=== PATIENT | female | born 1965 | race Caucasian/White ===

== ENCOUNTER → 2020-10-30 | Outpatient (CLI) | payer OTHER ==
[~2020-10-30] MED LIST: ALDACTONE25 MG PO; CARAFATE 1 GM TA1 GM PO; CARAFATE SU1 G/10 ML PO; CLARITIN10 M2 PO; DILTIAZEM 24HR180 M1 PO; FLEXERIL 10 MG10 MG PO; FOLIC ACID 1 MG1 MG PO; GLUCOTROL 10 MG10 MG PO; JANUMET XR 1001 EACH PO; JANUVIA100 MG PO; LIPITOR TAB 1010 MG PO; METFORMIN HCL1000 M1 PO; MIRALAX17 GM PO; OMNICEF 300 MG300 MG PO; PROTONIX 40 MG40 M1 PO; PYRIDIUM200 MG PO; ZESTRIL 40 MG T40 MG PO; ZOFRAN4 MG PO
== END ==
LOC: HEART 5 09-29 08:30
DX: R07.9 Chest pain, unspecified (principal); I08.1 Rheumatic disorders of both mitral and tricuspid valves; R93.1 Abnormal findings on diagnostic imaging of heart and coronary circulation
CPT/HCPCS: 78452; 93306; A9502; J2785

== ENCOUNTER → 2020-11-25 | Outpatient (CLI) | payer OTHER | LOC: KOH-I 11:13 | DX: Z01.818 Encounter for other preprocedural examination (principal) | CPT/HCPCS: 71046 ==

== ENCOUNTER → 2021-04-15 | Outpatient (CLI) | payer OTHER ==
[~2021-04-15] MED LIST changes: +DEXCOM G61 EAC1 MC; +FARXIGA10 MG PO; +METOPROLOL TART25 MG PO; +OMEGA-31000 MG PO; +PROTONIX40 MG PO; +ROPINIROLE HCL0.5 MG PO; +TRULICITY1.5 MG/0.5 SQ; +VITAMIN D350 MCG PO
== END ==
LOC: US 08:16
DX: R74.8 Abnormal levels of other serum enzymes (principal); K76.9 Liver disease, unspecified
CPT/HCPCS: 76700

== ENCOUNTER 2021-04-27 14:08 | Emergency (ER) | payer OTHER ==
[~2021-04-27 14:08] MED LIST changes: -DEXCOM G61 EAC1 MC; -FARXIGA10 MG PO; -METOPROLOL TART25 MG PO; -OMEGA-31000 MG PO; -PROTONIX40 MG PO; -ROPINIROLE HCL0.5 MG PO; -TRULICITY1.5 MG/0.5 SQ; -VITAMIN D350 MCG PO
[2021-04-27 16:46] LABS: HEMOGLOBIN 14.4 gm/dl (12.3-15.3); RED BLOOD COUNT 5.11 M/UL (4.00-5.10); WHITE BLOOD COUNT 16.6 K/UL (4.5-11.0)
[2021-04-27 17:14] LABS: BUN/CREATININE RATIO 12 (0-10)
[2021-05-13] MEDS ORDERED: FARXIGA10 MG PO (08:23)
[2021-05-13] MEDS ORDERED: TRULICITY1.5 MG/0.5 SQ (08:23)
[2021-05-13] MEDS ORDERED: METOPROLOL TART25 MG PO (08:24)
[2021-05-13] MEDS ORDERED: OMEGA-31000 MG PO ×2 (08:24→08:25)
[2021-05-13] MEDS ORDERED: ROPINIROLE HCL0.5 MG PO (08:25)
[2021-05-13] MEDS ORDERED: PROTONIX40 MG PO (08:26)
[2021-05-13] MEDS ORDERED: DEXCOM G61 EAC1 MC (08:27)
[2021-05-13] MEDS ORDERED: VITAMIN D350 MCG PO (08:27)
== END 2021-04-27 19:51 | disposition home or self-care (01) ==
LOC: ER1 14:08
PROVIDERS: Physician Assistant Medical
DX: R10.9 Unspecified abdominal pain (principal); I10 Essential (primary) hypertension; Z90.710 Acquired absence of both cervix and uterus; Z91.041 Radiographic dye allergy status; Z90.49 Acquired absence of other specified parts of digestive tract
CPT/HCPCS: 80053; 81001; 83605; 83690; 85025; 99284

== ENCOUNTER → 2021-05-13 | Day surgery (SDC) | payer OTHER ==
[~2021-05-13] MED LIST changes: +DEXCOM G61 EAC1 MC; +FARXIGA10 MG PO; +METOPROLOL TART25 MG PO; +OMEGA-31000 MG PO; +PROTONIX40 MG PO; +ROPINIROLE HCL0.5 MG PO; +TRULICITY1.5 MG/0.5 SQ; +VITAMIN D350 MCG PO
== END | disposition home or self-care (01) ==
LOC: OR 07:07
DX: K31.9 Disease of stomach and duodenum, unspecified (principal); K29.50 Unspecified chronic gastritis without bleeding; K21.00 Gastro-esophageal reflux disease with esophagitis, without bleeding; K63.89 Other specified diseases of intestine; K22.70 Barrett's esophagus without dysplasia; K25.9 Gastric ulcer, unspecified as acute or chronic, without hemorrhage or perforation; K64.0 First degree hemorrhoids; R19.7 Diarrhea, unspecified; E66.3 Overweight; I10 Essential (primary) hypertension; E11.9 Type 2 diabetes mellitus without complications; J30.9 Allergic rhinitis, unspecified; G25.81 Restless legs syndrome; R91.1 Solitary pulmonary nodule; D68.9 Coagulation defect, unspecified; M81.0 Age-related osteoporosis without current pathological fracture; Z79.899 Other long term (current) drug therapy; Z20.822 Contact with and (suspected) exposure to COVID-19; Z91.041 Radiographic dye allergy status; Z90.710 Acquired absence of both cervix and uterus; Z87.442 Personal history of urinary calculi
CPT/HCPCS: 82962; J2405; J2704; J7040

== ENCOUNTER → 2021-05-15 | Outpatient (CLI) | payer OTHER | LOC: CT 10:56 | DX: K76.9 Liver disease, unspecified (principal); K76.0 Fatty (change of) liver, not elsewhere classified | CPT/HCPCS: 36415; 74170; Q9965 ==

== ENCOUNTER → 2021-11-24 | Outpatient (CLI) | payer OTHER | LOC: KOH-I 10:42 | DX: R22.9 Localized swelling, mass and lump, unspecified (principal) | CPT/HCPCS: 76705 ==

== ENCOUNTER → 2022-01-07 | Outpatient (CLI) | payer OTHER ==
[~2022-01-07] VITALS: Ht 165.1 cm; Wt 81.6 kg
== END ==
LOC: OPSV 12-23 14:00
DX: M81.0 Age-related osteoporosis without current pathological fracture (principal)
CPT/HCPCS: 96365; J3489

== ENCOUNTER → 2022-02-09 | Day surgery (SDC) | payer OTHER ==
[~2022-02-09] MED LIST changes: +BAYER CHEWABLE81 MG PO; +CRESTOR20 MG PO; +SINGULAIR5 MG PO; +XYZAL5 MG PO
== END | disposition home or self-care (01) ==
LOC: OR 07:00
DX: K90.0 Celiac disease (principal); K22.70 Barrett's esophagus without dysplasia; K29.50 Unspecified chronic gastritis without bleeding; K22.89 Other specified disease of esophagus; E11.9 Type 2 diabetes mellitus without complications; K21.00 Gastro-esophageal reflux disease with esophagitis, without bleeding; I10 Essential (primary) hypertension; E78.5 Hyperlipidemia, unspecified; M19.90 Unspecified osteoarthritis, unspecified site; E66.3 Overweight; Z88.8 Allergy status to other drugs, medicaments and biological substances; Z91.041 Radiographic dye allergy status; Z90.49 Acquired absence of other specified parts of digestive tract; Z79.82 Long term (current) use of aspirin; Z79.899 Other long term (current) drug therapy; Z68.28 Body mass index [BMI] 28.0-28.9, adult
CPT/HCPCS: 82962; J2704

== ENCOUNTER → 2022-03-24 | Outpatient (CLI) | payer OTHER | LOC: NM 09:00 | DX: K31.89 Other diseases of stomach and duodenum (principal) | CPT/HCPCS: 78264; A9541 ==